=== PATIENT | female | born 1960 | race Caucasian/White ===

== ENCOUNTER 2016-06-27 20:54 | Emergency (ER) | payer OTHER ==
[2016-06-27] MEDS ORDERED: TETANUS/DIPHTHERIA/PERTUSSIS 0.5 ML SYRINGE IM ONE ×2 (21:06→21:07)
[2016-06-27 21:34] VITALS: BP 143/92
--- NOTE | 2016-06-27 21:43 | XRAY Preliminary Report ---
Exam: XR Foot 2 View RT IMPRESSION: No evidence of fracture or radiopaque foreign body. [facility] SITE ID: [id number]
--- NOTE | 2016-06-27 21:45 | XRAY Report ---
EXAM: RIGHT FOOT RADIOGRAPHY EXAM DATE: 06/27/2016 09:23 PM. CLINICAL HISTORY: Foot pain COMPARISON: None. TECHNIQUE: 3 views. FINDINGS: Bones: No fracture or focal bony lesion. Joints: No evidence of dislocation. Soft Tissues: No unexpected soft tissue findings. IMPRESSION: No evidence of fracture or radiopaque foreign body. [facility] Referring Provider Line: [phone] SITE ID: [id number]
[2016-06-27] MEDS ORDERED: CEPHALEXIN 250 MG CAPSULE PO STA (21:46)
[2016-06-27] MEDS ORDERED: levoFLOXacin 250 MG TABLET PO STA (21:46)
[2016-06-27] MEDS ORDERED: oxyCOD/ACETAMIN 5 MG/325 MG TABLET PO STA (21:46)
[2016-06-27] MEDS ORDERED: oxyCOD/ACETAMIN 5 MG/325 MG TABLET PO ONE (21:48)
[2016-06-27] MEDS ORDERED: levoFLOXacin 250 MG TABLET ONE (21:49)
[2016-06-27] MEDS ORDERED: CEPHALEXIN 250 MG CAPSULE PO ONE (21:49)
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
== END 2016-06-27 22:05 | disposition home or self-care (01) ==
LOC: ED 20:54
DX: S91.331A Puncture wound without foreign body, right foot, initial encounter (principal); W45.0XXA Nail entering through skin, initial encounter; Y92.019 Unspecified place in single-family (private) house as the place of occurrence of the external cause; Z23 Encounter for immunization; Z87.442 Personal history of urinary calculi; F17.200 Nicotine dependence, unspecified, uncomplicated
CPT/HCPCS: 73620; 90471; 90715; 99283; A9270